=== PATIENT | female | born 1970 | race Caucasian/White ===

== ENCOUNTER 2017-06-23 20:24 | Emergency (ER) | payer MEDICARE, MEDICAID ==
[~2017-06-23] VITALS: Wt 61.4 kg
[2017-06-23 21:04] LABS: CLARITY,URINE Clear (Clear); COLOR,URINE Yellow (Yellow); GLUCOSE, URINE Negative (Neg); KETONES,URINE Negative (Neg); LEUKOCYTE ESTERASE ,URINE Negative (Neg); NITRITES, URINE Negative (Neg); OCCULT BLOOD,URINE Negative (Neg); PROTEIN,URINE Negative (Neg); UROBILINOGEN,URINE 0.2 E.U/dL (0.2-1.0)
[2017-06-23 21:08] LABS: URINE HCG NEGATIVE (NEG)
[2017-06-23 21:09] LABS: UA COLLECTION TYPE CLN CATCH MIDSTREAM
[2017-06-23 21:16] LABS: URINE AMPHETAMINE SCREEN NEGATIVE (Neg); URINE BARBITUATE SCREEN NEGATIVE (Neg); URINE BENZODIAZEPINES SCREEN NEGATIVE (Neg); URINE CANNABINOID SCREEN POSITIVE (Neg); URINE COCAINE SCREEN NEGATIVE (Neg); URINE METHADONE SCREEN NEGATIVE (Neg); URINE OPIATE SCREEN NEGATIVE (Neg); URINE PHENCYCLIDINE SCREEN NEGATIVE (Neg)
[2017-06-23 21:32] LABS: BASOPHILS # (AUTO) 0.1 X10'3 (0-0.2); BASOPHILS % (AUTO) 0.7 % (0-1); EOSINOPHILS # (AUTO) 0.1 X10'3 (0-0.9); EOSINOPHILS % (AUTO) 0.6 % (0-6); HEMATOCRIT 41.5 % (35.0-45.0); LYMPHOCYTES # (AUTO) 2.9 X10'3 (1.1-4.8); LYMPHOCYTES % (AUTO) 33.6 % (21-51); MEAN CORPUSCULAR HEMOGLOBIN 31.7 PG (27.0-31.0); MEAN CORPUSCULAR HGB CONC 33.8 % (33.0-36.5); MEAN CORPUSCULAR VOLUME 93.8 FL (78-98); MEAN PLATELET VOLUME 7.9 FL (7.4-10.4); MONOCYTES # (AUTO) 0.4 X10'3 (0-0.9); MONOCYTES % (AUTO) 4.5 % (2-12); NEUTROPHILS # (AUTO) 5.3 X10'3 (1.8-7.7); NEUTROPHILS % (AUTO) 60.6 % (42-75); PLATELET COUNT 266 X10'3 (140-440); RED BLOOD COUNT 4.42 X10'6 (4.20-5.60); RED CELL DISTRIBUTION WIDTH 13.7 % (11.5-14.5); WHITE BLOOD COUNT 8.7 X10'3 (4.5-11.0)
[2017-06-23 21:56] LABS: ALANINE AMINOTRANSFERASE 27 U/L (12-78); ALBUMIN 4.2 G/DL (3.4-5.0); ALBUMIN/GLOBULIN RATIO 1.6 (1.1-1.5); ALKALINE PHOSPHATASE 53 IU/L (46-116); ANION GAP 7 (8-16); ASPARTATE AMINO TRANSFERASE 23 U/L (10-37); BILIRUBIN,TOTAL 0.4 MG/DL (0.1-1.0); BLOOD UREA NITROGEN 8 MG/DL (7-18); BUN/CREATININE RATIO 11.4 (6.6-38.0); CALCIUM 8.6 MG/DL (8.5-10.1); CHLORIDE 103 MMOL/L (99-107); ETHANOL < 0.010 GM/DL (0.0-0.010); GLUCOSE 87 MG/DL (70-104); SODIUM 139 MMOL/L (135-145); TOTAL CARBON DIOXIDE 28.7 MMOL/L (24-32); TOTAL PROTEIN 6.9 G/DL (6.4-8.2); eGFR 90 ML/MIN
[2017-06-23 21:59] LABS: POTASSIUM 3.5 MMOL/L (3.5-5.1)
[2017-06-23 22:00] LABS: ACETAMINOPHEN < 2.0 UG/ML (10-30)
[2017-06-24] MEDS: OLANZapine 2.5MG tablet PO SCH ×3 (06:11→20:12)
[2017-06-24] MEDS ORDERED: PREG300C PO (11:45)
[2017-06-24] MEDS ORDERED: IBUP-24 PO (11:46)
[2017-06-24] MEDS: ibuprofen 200mg tablet PO PRN (16:55)
[2017-06-24] MEDS: pregabalin 75mg capsule PO SCH (20:11)
[2017-06-25] MEDS: OLANZapine 2.5MG tablet PO SCH ×2 (06:59→20:07)
[2017-06-25] MEDS: pregabalin 75mg capsule PO SCH ×3 (07:00→20:07)
[2017-06-25] MEDS: ibuprofen 200mg tablet PO PRN ×2 (07:01→14:14)
[2017-06-25] MEDS ORDERED: NITA500T2 PO (16:50)
[2017-06-25] MEDS: LORazepam 0.5 MG tablet PO PRN (19:20)
[2017-06-26] MEDS: OLANZapine 2.5MG tablet PO SCH ×2 (07:55→20:00)
[2017-06-26] MEDS: pregabalin 75mg capsule PO SCH ×3 (07:55→21:20)
[2017-06-26] MEDS: ibuprofen 200mg tablet PO PRN ×2 (08:34→15:01)
[2017-06-26] MEDS: LORazepam 0.5 MG tablet PO PRN ×2 (09:53→17:24)
[2017-06-26] MEDS: polyvinyl alcohol ophthalmic drops 15ml bottle EACHEYE PRN (21:20)
[2017-06-27] MEDS: LORazepam 0.5 MG tablet PO PRN ×3 (02:23→16:14)
[2017-06-27] MEDS: polyvinyl alcohol ophthalmic drops 15ml bottle EACHEYE PRN ×3 (02:39→20:38)
[2017-06-27] MEDS ORDERED: ALINIA PO SCH ×2 (08:00→12:52)
[2017-06-27] MEDS: pregabalin 75mg capsule PO SCH ×3 (08:18→20:36)
[2017-06-27] MEDS: OLANZapine 2.5MG tablet PO SCH ×2 (08:27→20:37)
[2017-06-27] MEDS ORDERED: ibuprofen tablet 400 MG TABLET PO ONE (13:00)
[2017-06-27] MEDS: ibuprofen 200mg tablet PO PRN (20:37)
[2017-06-27] MEDS: ALINIA PO SCH (22:05)
[2017-06-28] MEDS: LORazepam 0.5 MG tablet PO PRN ×3 (05:41→18:56)
[2017-06-28] MEDS: polyvinyl alcohol ophthalmic drops 15ml bottle EACHEYE PRN ×3 (07:38→20:08)
[2017-06-28] MEDS: pregabalin 75mg capsule PO SCH ×3 (07:39→20:07)
[2017-06-28] MEDS: OLANZapine 2.5MG tablet PO SCH (08:02)
[2017-06-28] MEDS: ibuprofen 200mg tablet PO PRN ×2 (08:13→17:07)
[2017-06-28] MEDS ORDERED: magnesium citrate 296ml oral solution PO PRN (10:00)
[2017-06-28] MEDS: magnesium hydroxide 30ml (MOM) UD suspension PO PRN (10:34)
[2017-06-28] MEDS: OLANZapine 5mg rapidly disint. tablet PO SCH (20:07)
[2017-06-28] MEDS: ALINIA PO SCH (20:08)
[2017-06-29] MEDS: ibuprofen 200mg tablet PO PRN ×2 (04:47→12:55)
[2017-06-29] MEDS: LORazepam 0.5 MG tablet PO PRN ×3 (04:47→18:04)
[2017-06-29] MEDS: polyvinyl alcohol ophthalmic drops 15ml bottle EACHEYE PRN ×2 (05:07→12:58)
[2017-06-29] MEDS: OLANZapine 5mg rapidly disint. tablet PO SCH ×2 (07:48→20:26)
[2017-06-29] MEDS: pregabalin 75mg capsule PO SCH ×3 (07:52→20:26)
[2017-06-29] MEDS: magnesium hydroxide 30ml (MOM) UD suspension PO PRN (09:49)
[2017-06-29] MEDS: ALINIA PO SCH (20:27)
[2017-06-30] MEDS: ibuprofen 200mg tablet PO PRN ×3 (04:55→17:43)
[2017-06-30] MEDS: LORazepam 0.5 MG tablet PO PRN (05:45)
[2017-06-30] MEDS: pregabalin 75mg capsule PO SCH ×3 (07:55→20:13)
[2017-06-30] MEDS: OLANZapine 5mg rapidly disint. tablet PO SCH (07:55)
[2017-06-30] MEDS: mirtazapine 15mg tablet PO SCH (20:13)
[2017-06-30] MEDS: ALINIA PO SCH (20:16)
[2017-06-30] MEDS: magnesium hydroxide 30ml (MOM) UD suspension PO PRN (20:18)
[2017-07-01] MEDS: ibuprofen 200mg tablet PO PRN ×3 (05:14→19:12)
[2017-07-01] MEDS: pregabalin 75mg capsule PO SCH ×3 (07:50→20:18)
[2017-07-01] MEDS: polyvinyl alcohol ophthalmic drops 15ml bottle EACHEYE PRN (07:50)
[2017-07-01] MEDS: ALINIA PO SCH (20:00)
[2017-07-01] MEDS: mirtazapine 15mg tablet PO SCH (20:18)
[2017-07-02] MEDS: ibuprofen 200mg tablet PO PRN (05:25)
[2017-07-02 05:30] VITALS: BP 97/60
[2017-07-02] MEDS: pregabalin 75mg capsule PO SCH (08:47)
[2017-07-02] MEDS ORDERED: ibuprofen 200mg tablet PO PRN (10:50)
[2017-07-02] MEDS ORDERED: HYDR-565 PO (15:08)
[2017-07-02] MEDS ORDERED: DIAZ5TAB PO (15:08)
[2017-07-02] MEDS ORDERED: MORP-64 PO (15:08)
[2017-07-02] MEDS ORDERED: PREG150C PO (15:08)
[2017-07-02] MEDS ORDERED: PAT0.1OS EACHEYE (15:08)
[2017-07-02] MEDS ORDERED: CHOL10002 PO (15:08)
[2017-07-02] MEDS ORDERED: NORT10CA2 PO (15:08)
== END 2017-07-02 12:38 ==
LOC: ER 20:25
DX: F23 Brief psychotic disorder (principal); F41.9 Anxiety disorder, unspecified; F17.200 Nicotine dependence, unspecified, uncomplicated; A69.20 Lyme disease, unspecified; Z59.0 Homelessness; Z98.890 Other specified postprocedural states; Z79.899 Other long term (current) drug therapy
CPT/HCPCS: 36415; 72040; 80053; 80305; 80320; 80329; 81003; 81025; 84443; 85025; 99285